=== PATIENT | female | born 1935 | race Caucasian/White ===

== ENCOUNTER 2020-12-02 17:45 | Emergency (ER) | payer OTHER ==
[~2020-12-02] VITALS: Ht 162.6 cm; Wt 53.5 kg
[2020-12-02] MEDS ORDERED: LEVOTHYROXINE25 MCG (18:25)
[2020-12-02] MEDS ORDERED: COZAAR50 MG (18:25)
[2020-12-03] MEDS ORDERED: PEPCID AC20 MG PO (03:56)
[2020-12-03] MEDS ORDERED: NAPROXEN375 MG PO (03:56)
== END 2020-12-03 05:05 | disposition home or self-care (01) ==
LOC: ER 17:45
DX: W18.39XA Other fall on same level, initial encounter (principal); Y93.89 Activity, other specified; Y92.098 Other place in other non-institutional residence as the place of occurrence of the external cause

== ENCOUNTER 2021-05-02 10:21 | Outpatient (CLI) | payer OTHER ==
[~2021-05-02 10:21] MED LIST: COZAAR50 MG; LEVOTHYROXINE25 MCG; NAPROXEN375 MG PO; PEPCID AC20 MG PO
== END 2021-05-02 10:26 | disposition home or self-care (01) ==
LOC: NUCLEAR 10:21
PROVIDERS: ATTEND Internal Medicine Cardiovascular Disease
DX: I47.1 Supraventricular tachycardia (principal)

== ENCOUNTER 2022-11-01 10:12 | Outpatient (CLI) | payer OTHER | END 2022-11-01 10:15 | disposition home or self-care (01) | LOC: NUCLEAR 10:12 | PROVIDERS: ATTEND Internal Medicine Cardiovascular Disease | DX: G45.9 Transient cerebral ischemic attack, unspecified (principal) ==